=== PATIENT | male | born 1960 | race Caucasian/White ===

== ENCOUNTER 2016-11-13 19:09 | Emergency (ER) | payer MEDICAID ==
[2015-08-06 09:18] VITALS: BMI 37.5
[~2016-11-13 19:09] MED LIST: ACETAMINOPHEN500 M1 PO; ASPIRIN81 MG PO; AUGMENTIN 875-11 TAB PO; DECADRON4 MG PO; HYDROCODON-ACE1 EAC7 PO; MUCUS RELIEF400 MG PO; PEPCID20 MG PO
[2016-11-13 20:03] LABS: BASOPHILS 0.3 % (0-2); EOSINOPHILS 0.8 % (0-7); HEMATOCRIT 35.3 % (42.0-54.0); HEMOGLOBIN 11.1 g/dL (13.5-17.5); IMMATURE GRANULOCYTES 0.4 % (0-5); LYMPHOCYTES 10.8 % (15-50); MCH 28.8 pg (26.0-34.0); MCHC 31.4 g/dL (31.0-37.0); MCV 91.5 fL (80.0-100.0); MEAN PLATELET VOLUME 8.6 fL (7.4-10.4); NEUTROPHILS 75.7 % (40-80); PLATELET COUNT 263 10x3/uL (130-400); RBC 3.86 10x6/uL (4.20-6.10); RDW 15.3 % (11.5-14.5); WBC 7.3 10x3/uL (4.8-10.8)
[2016-11-13 20:34] LABS: ALKALINE PHOSPHATASE 53 U/L (46-116); ALT (SGPT) 12 U/L (10-68); BILIRUBIN - TOTAL 0.38 mg/dL (0.2-1.3); CALC OSMOLALITY 278 mosm/kg (275-300); CALCIUM 9.3 mg/dL (8.5-10.1); CHLORIDE - SERUM 100 mmol/L (98-107); CREATININE - SERUM 0.8 mg/dL (0.6-1.3); GLUCOSE 105 mg/dL (74-106); POTASSIUM - SERUM 4.4 mmol/L (3.5-5.1); PROTEIN - SERUM 7.2 g/dL (6.4-8.2); SODIUM 141 mmol/L (136-145); UREA NITROGEN 6 mg/dL (7-18); eGFR NON AFRICAN AMERICAN > 90 mL/min (90-120)
[2016-11-13 20:49] LABS: CKMB 0.5 U/L (0.0-3.6); CREATINE KINASE 31 UL (21-232)
[2016-11-13 20:51] LABS: TROPONIN-I < 0.017 ng/mL (0.000-0.060)
== END 2016-11-14 | disposition home or self-care (01) ==
LOC: D.ER 19:09
PROVIDERS: Family Medicine
DX: R07.89 Other chest pain (principal); K21.9 Gastro-esophageal reflux disease without esophagitis; R00.0 Tachycardia, unspecified; C34.90 Malignant neoplasm of unspecified part of unspecified bronchus or lung

== ENCOUNTER 2017-03-28 17:21 | Inpatient (IN) | payer MEDICAID ==
[~2017-03-28] VITALS: Ht 182.9 cm; Wt 81.6 kg
[2017-03-28 18:51] LABS: BASOPHILS 0.2 % (0-2); EOSINOPHILS 0.2 % (0-7); HEMATOCRIT 30.2 % (42.0-54.0); HEMOGLOBIN 9.6 g/dL (13.5-17.5); IMMATURE GRANULOCYTES 0.4 % (0-5); LYMPHOCYTES 2.8 % (15-50); MCH 27.7 pg (26.0-34.0); MCHC 31.8 g/dL (31.0-37.0); MCV 87.3 fL (80.0-100.0); MONOCYTES 4.8 % (2-11); NEUTROPHILS 91.6 % (40-80); PLATELET COUNT 259 10x3/uL (130-400); RBC 3.46 10x6/uL (4.20-6.10); RDW 20.8 % (11.5-14.5); WBC 10.3 10x3/uL (4.8-10.8)
[2017-03-28 19:18] LABS: CALCIUM 8.8 mg/dL (8.5-10.1); CARBON DIOXIDE 23.3 mmol/L (21.0-32.0); CHLORIDE - SERUM 98 mmol/L (98-107); CREATININE - SERUM 0.6 mg/dL (0.6-1.3); GLUCOSE 99 mg/dL (74-106); SODIUM 135 mmol/L (136-145); eGFR NON AFRICAN AMERICAN > 90 mL/min (90-120)
[2017-03-28 19:30] LABS: CALC OSMOLALITY 267 mosm/kg (275-300); UREA NITROGEN 8 mg/dL (7-18)
--- NOTE | 2017-03-29 00:21 | NUR ---
RED'D PT FROM ER. PATIENT HAS NO VISIBLE SIGNS OF DISTRESS. ASSESSMENT AND HX COMPLETED. PATIENT DENIES NEEDS AT THIS TIME. BED IN LOWEST POSITION AND CALL LIGHT WITHIN REACH. ENCOURAGED THE PATIENT TO CALL IF HE HAS NEEDS.
--- NOTE | 2017-03-29 01:35 | NUR ---
FIRST DOSE OF CLEOCIN NOT GIVEN. PATIENT WAS IN THE ER WHEN DOSE WAS DUE. PATIENT DID NOT ARRIVE ON THE FLOOR UNTIL 00203/29/17
[2017-03-29 02:46] VITALS: BP 102/73; BMI 24.4
[2017-03-29] MEDS ORDERED: HYDROCODONE-APA1 TAB PO (03:16)
[2017-03-29] MEDS ORDERED: ATIVAN0.5 MG PO (03:17)
[2017-03-29 08:02] VITALS: BP 107/75
[2017-03-29 12:19] VITALS: BP 109/71
[2017-03-29 15:46] VITALS: BP 90/60
[2017-03-29 15:49] VITALS: Ht 182.9 cm; Wt 81.6 kg
--- NOTE | 2017-03-29 16:39 | NUR ---
Patient Name: KRUPA PHILLIPS Admission Status: ER Accout number: [id number] Admission Date: 03-28-2017 : 1960 Admission Diagnosis: Attending: CLAYTON TORRES Current LOS: 1 Anticipated DC Date: 04-03-2017 Planned Disposition: Home Primary Insurance: MEDICAID [place] Discharge Planning Comments: CM MET WITH PATIENT REGARDING D/C NEEDS AND PLANS. PATIENT STATED HE LIVES ALONE AND HIS BROTHER (PACO) OR FRIEND WILL DRIVE HIM HOME AT DISCHARGE. PATIENT STATED HE HAS A RAMP TO ENTER HOME AND NO STAIRS INSIDE. PATIENT STATED HE IS INDEPENDENT WITH HIS CARE AND HAS A WALKER, WHEELCHAIR, SHOWER CHAIR, BS COMMODE, AND CANE. PATIENTS PCP IS DR. TORRES AND PHARMACY IS [facility]. PATIENT DENIED HOME HEALTH OR ANY NEEDS FOR DISCHARGE. CM WILL CONTINUE TO FOLLOW PATIENT WITH D/C NEEDS AND PLANS. PCP [facility]- [phone] PACO PHILLIPS (BROTHER) [phone] Car Painter: Inga Fox Is the patient Alert and Oriented? Yes 0 * How many steps to enter\exit or inside your home? RAMP 0 * PCP DR. TORRES 0 * [facility] IN [place] 0 * Preadmission Environment Home Alone 0 * ADLs Independent 0 * Equipment Bedside Commode Cane Shower Chair Walker Wheelchair 0 * List name and contact numbers for known caregivers / representatives who currently or will assist patient after discharge: PACO PHILLIPS (BROTHER) [phone] * Community resources currently utilized None 0 * Additional services required to return to the preadmission environment? Yes 0 * Can the patient safely return to the preadmission environment? Yes 0 * Has this patient been hospitalized within the prior 30 days at any hospital? No 0 Grand Total: 0
--- NOTE | 2017-03-29 17:50 | NUR ---
PT SITTING UP IN BED WITH NO VISABLE SIGNS OF PAIN OR DISCOMFORT AT THIS TIME. BED IN LOW POSITION AND CALL LIGHT WITHIN REACH. WILL CONTINUE TO MONITOR.
[2017-03-29 20:00] VITALS: BP 101/73
--- NOTE | 2017-03-29 21:48 | NUR ---
REC'D WALKING AROUND IN ROOM. ALERT AND ORIENTED X4. REPORTED PAIN 7/10. WILL ADMIN PAIN MEDS PRESCRIBED. REPORTED FEELING RESTLESS. DENIED NEEDS AT THIS TIME. NO DISTRESS NOTED. WILL CONT TO MONITOR. INSTRUCTED TO CALL IF NEEDED ANYTHING, VERBALIZED UNDERSTANDING. BED LOW, LOCKED CALL LIGHT IN REACH.
[2017-03-30] VITALS: BP 104/69
--- NOTE | 2017-03-30 02:17 | NUR ---
PATIENT IS SITTING UP IN THE CHAIR RECIEVING AN UPDRAFT. PATIENT DENIES NEEDS. NO SIGNS OF DISTRESS NOTED.
[2017-03-30 05:54] LABS: BASOPHILS 0 % (0-2); EOSINOPHILS 0.3 % (0-7); HEMATOCRIT 29.5 % (42.0-54.0); HEMOGLOBIN 9.5 g/dL (13.5-17.5); IMMATURE GRANULOCYTES 0.4 % (0-5); LYMPHOCYTES 8.9 % (15-50); MCH 27.5 pg (26.0-34.0); MCHC 32.2 g/dL (31.0-37.0); MCV 85.5 fL (80.0-100.0); MEAN PLATELET VOLUME 9.2 fL (7.4-10.4); MONOCYTES 7.9 % (2-11); NEUTROPHILS 82.5 % (40-80); PLATELET COUNT 298 10x3/uL (130-400); RBC 3.45 10x6/uL (4.20-6.10); RDW 20.6 % (11.5-14.5); WBC 11.1 10x3/uL (4.8-10.8)
[2017-03-30 06:11] LABS: ALBUMIN 2.4 g/dL (3.4-5.0); ALKALINE PHOSPHATASE 88 U/L (46-116); ALT (SGPT) 22 U/L (10-68); CALC OSMOLALITY 269 mosm/kg (275-300); CALCIUM 9.8 mg/dL (8.5-10.1); CARBON DIOXIDE 28.2 mmol/L (21.0-32.0); CHLORIDE - SERUM 98 mmol/L (98-107); CREATININE - SERUM 0.6 mg/dL (0.6-1.3); GLUCOSE 118 mg/dL (74-106); POTASSIUM - SERUM 3.4 mmol/L (3.5-5.1); SODIUM 135 mmol/L (136-145); eGFR NON AFRICAN AMERICAN > 90 mL/min (90-120)
[2017-03-30 06:23] LABS: UREA NITROGEN 11 mg/dL (7-18)
--- NOTE | 2017-03-30 07:38 | NUR ---
PATIENT IS SITTING UP IN A CHAIR. PATIENT IS AWAKE, ALERT, AND ORIENTED X4. PATIENT DENIES ANY NEEDS AT PRESENT TIME. CALL LIGHT IN PATIENT'S REACH. WILL MONITOR PATIENT.
[2017-03-30 08:21] VITALS: BP 104/73
[2017-03-30 12:17] VITALS: BP 101/73
--- NOTE | 2017-03-30 13:36 | NUR ---
PATIENT SITTING UP IN A CHAIR AND WATCHING T.V. CALL LIGHT IS WITHIN PATIENT'S REACH. PATIENT DENIES ANY NEEDS AT PRESENT TIME. WILL MONITOR PATIENT.
[2017-03-30] MEDS ORDERED: CLEOCIN HCL300 MG PO (14:31)
[2017-03-30] MEDS ORDERED: PROTONIX40 MG PO (14:32)
[2017-03-30] MEDS ORDERED: DURAGESIC1 PATCH .1 TRANSDERM (14:32)
[2017-03-30] MEDS ORDERED: PROAIR HFA8.5 GM INH (14:34)
--- NOTE | 2017-03-30 14:51 | NUR ---
CM REASSESSMENT NOTE: PATIENT IS DISCHARGING HOME TODAY/EXPRESSED NO NEEDS. BROTHER IS DRIVING HIM HOME. DR. TORRES IS SETTING HIM UP WITH HOSPICE ONCE HOME PER PATIENT.
[2017-03-30 16:02] VITALS: BP 98/66
--- NOTE | 2017-03-30 16:22 | NUR ---
PATIENT'S IV DC'D WITH CATHETER TIP STILL INTACT. 2X2 GAUZE AND BANDAID APPLIED. DISCHARGE INSTRUCTIONS VERBALIZED TO PATIENT. PATIENT VERBALIZED UNDERSTANDING AND SIGNED DISCHARGE SHEETS.
--- NOTE | 2017-03-30 16:30 | NUR ---
PATIENT'S BROTHER HERE TO DRIVE HIM HOME. PATIENT DISCHARGED VIA WHEELCHAIR TO PRIVATE VEHICLE.
== END 2017-03-30 16:30 | disposition home or self-care (01) | DRG 190 ==
LOC: D.ER 17:21 → D.MS 20:34
PROVIDERS: Nurse Practitioner Acute Care; ADMIT Internal Medicine Medical Oncology
DX: J44.0 Chronic obstructive pulmonary disease with (acute) lower respiratory infection (principal); J18.9 Pneumonia, unspecified organism; C34.90 Malignant neoplasm of unspecified part of unspecified bronchus or lung; C79.31 Secondary malignant neoplasm of brain; J44.9 Chronic obstructive pulmonary disease, unspecified; D63.8 Anemia in other chronic diseases classified elsewhere